=== PATIENT | male | born 1950 | race Caucasian/White ===

== ENCOUNTER 2017-05-17 09:57 | Inpatient (IN) | payer MEDICARE, MEDICAID ==
[2017-05-17] MEDS: PROPOFOL 200 MG INJ IV (10:28)
[2017-05-17] MEDS: HYDROmorphONE 1 MG/ML SYG IV (10:28)
[2017-05-17] MEDS: ONDANSETRON 4 MG INJ IV (10:28)
[2017-05-17] MEDS: HYDROCODONE/APAP (10/325) TAB PO (10:33)
[2017-05-17] MEDS: ONDANSETRON (ODT) 4 MG TAB ODT (10:34)
[2017-05-17] MEDS ORDERED: ONDANSETRON 4 MG INJ IV (11:30)
[2017-05-17] MEDS: LIDOCAINE 1% (MPF) 5 ML VIAL SC (14:00)
[2017-05-17] MEDS ORDERED: MINERAL OIL 133 ML ENEMA PR (15:00)
[2017-05-17] MEDS ORDERED: SENNA TAB PO (15:00)
[2017-05-17] MEDS ORDERED: MAGNESIUM HYDROXIDE 30ML CUP PO (15:00)
[2017-05-17] MEDS ORDERED: POLYETHYLENE GLYCOL 17 GM PACKET PO (15:00)
[2017-05-17 17:01] LABS: ADD MAN DIFF? NO
[2017-05-17 17:05] LABS: BASOPHILS % 0.3 % (0.0-2.0); EOSINOPHILS # 0.2 10^3/ul (0.0-0.5); EOSINOPHILS % 1.6 % (0.0-7.0); HEMATOCRIT 33.8 % (42.0-52.0); HEMOGLOBIN 10.6 g/dl (14.0-18.0); LYMPHOCYTES # 1.2 10^3/ul (0.8-2.9); LYMPHOCYTES % 10.2 % (15.0-51.0); MEAN CORPUSCULAR HEMOGLOBIN 29.1 pg (29.0-33.0); MEAN CORPUSCULAR HGB CONC 31.4 g/dl (32.0-37.0); MEAN CORPUSCULAR VOLUME 92.9 fl (82.0-101.0); MEAN PLATELET VOLUME 9.5 fl (7.4-10.4); MONOCYTE # 0.6 10^3/ul (0.3-0.9); MONOCYTES % 5.3 % (0.0-11.0); NEUTROPHIL # 9.4 10^3/ul (1.6-7.5); NEUTROPHILS % 81.4 % (39.0-77.0); PLATELET COUNT 250 10^3/UL (140-415); RED BLOOD COUNT 3.64 10^6/ul (4.70-6.10)
[2017-05-17 17:05] LABS: WHITE BLOOD COUNT 11.6 10^3/ul (4.8-10.8)
[2017-05-17 17:24] LABS: INR 1.04; PARTIAL THROMBOPLASTIN TIME 34.1 Sec (25.0-35.0); PROTIME 13.7 Sec (11.9-14.9); PT RATIO 1.1
[2017-05-17 17:43] LABS: ANION GAP 9 (8-16); BLOOD UREA NITROGEN 34 mg/dl (7-20); CALCIUM 9.3 mg/dl (8.4-10.2); CARBON DIOXIDE 32 mmol/L (21-31); CHLORIDE 103 mmol/L (97-110); CREATININE 0.53 mg/dl (0.61-1.24); GLUCOSE 90 mg/dl (70-220); POTASSIUM 4.1 mmol/L (3.5-5.1); SODIUM 140 mmol/L (135-144)
[2017-05-17] MEDS: BISACODYL 10 MG SUPP PR (18:15)
[2017-05-17] MEDS: PROPRANOLOL 20 MG TAB GTB ×2 (18:16→23:46)
[2017-05-17] MEDS: LEVETIRACETAM (100 MG/ML) 5ML CUP GTB (18:17)
[2017-05-17 18:26] LABS: TROPONIN-I < 0.012 ng/ml (0.00-0.12)
[2017-05-17] MEDS: ACETAMINOPHEN 325 MG TAB PO (19:05)
[2017-05-17] MEDS ORDERED: AMIODARONE 200 MG TAB GTB (22:00)
[2017-05-17] MEDS ORDERED: PENDING SANTYL ORDER FOR WOUND CARE XX (22:30)
[2017-05-17] MEDS: AMIODARONE 200 MG TAB GTB (23:00)
[2017-05-18] MEDS ORDERED: SOD CHLORIDE 0.9% 500 ML IV (00:30)
[2017-05-18] MEDS: LEVETIRACETAM (100 MG/ML) 5ML CUP GTB ×3 (01:23→20:43)
[2017-05-18] MEDS: AMIODARONE 200 MG TAB GTB ×3 (05:21→22:07)
[2017-05-18 05:42] LABS: ADD MAN DIFF? NO
[2017-05-18 06:00] LABS: WHITE BLOOD COUNT 10.5 10^3/ul (4.8-10.8)
[2017-05-18 06:00] LABS: BASOPHILS % 0.3 % (0.0-2.0); EOSINOPHILS # 0.2 10^3/ul (0.0-0.5); EOSINOPHILS % 1.5 % (0.0-7.0); HEMATOCRIT 33.4 % (42.0-52.0); HEMOGLOBIN 10.3 g/dl (14.0-18.0); LYMPHOCYTES # 0.7 10^3/ul (0.8-2.9); LYMPHOCYTES % 6.6 % (15.0-51.0); MEAN CORPUSCULAR HEMOGLOBIN 28.6 pg (29.0-33.0); MEAN CORPUSCULAR HGB CONC 30.8 g/dl (32.0-37.0); MEAN CORPUSCULAR VOLUME 92.8 fl (82.0-101.0); MEAN PLATELET VOLUME 10.2 fl (7.4-10.4); MONOCYTE # 0.7 10^3/ul (0.3-0.9); NEUTROPHIL # 8.7 10^3/ul (1.6-7.5); PLATELET COUNT 277 10^3/UL (140-415)
[2017-05-18] MEDS: PROPRANOLOL 20 MG TAB GTB ×3 (06:19→22:07)
[2017-05-18] MEDS: traMADol 50 MG TAB GTB ×2 (06:26→13:12)
[2017-05-18 06:31] LABS: ANION GAP 10 (8-16); BLOOD UREA NITROGEN 30 mg/dl (7-20); CALCIUM 9.1 mg/dl (8.4-10.2); CARBON DIOXIDE 31 mmol/L (21-31); CHLORIDE 105 mmol/L (97-110); CREATININE 0.54 mg/dl (0.61-1.24); GLUCOSE 85 mg/dl (70-220); PHOSPHORUS 3.6 mg/dl (2.5-4.9); POTASSIUM 4.2 mmol/L (3.5-5.1); SODIUM 142 mmol/L (135-144)
[2017-05-18] MEDS: ASCORBIC ACID 500 MG TAB PO (09:48)
[2017-05-18] MEDS: LANSOPRAZOLE 30 MG CAP GTB (09:48)
[2017-05-18] MEDS: LORATADINE 10 MG TAB GTB (09:49)
[2017-05-18] MEDS: ACETAZOLAMIDE 250 MG TAB GTB (09:49)
[2017-05-18] MEDS: ZINC SULFATE 220 MG CAP GTB (09:49)
[2017-05-18] MEDS: FINASTERIDE 5 MG TAB GTB (09:50)
[2017-05-18] MEDS: LACTOBACILLUS RHAMNOSUS CAP PO (09:50)
[2017-05-18] MEDS: MULTIVITAMINS THERAPEUTIC TAB PO (09:51)
[2017-05-18] MEDS: ENOXAPARIN 40 MG/0.4 ML SYG SC (10:07)
[2017-05-18] MEDS ORDERED: VANCOMYCIN IV PER PHARMACY XX (13:00)
[2017-05-18] MEDS: DIGOXIN 0.25 MG TAB GTB (13:13)
[2017-05-18] MEDS: BISACODYL 10 MG SUPP PR (14:56)
[2017-05-18] MEDS: VANCOMYCIN 1.25 GM in SOD CHLORIDE 0.45% 250 ML IVPB (14:57)
[2017-05-19] MEDS ORDERED: VANCOMYCIN 1 GM in SOD CHLORIDE 0.45% 250 ML IVPB (03:00)
[2017-05-19] MEDS: VANCOMYCIN 750 MG in DEXTROSE 5% 150 ML IVPB ×2 (03:23→15:58)
[2017-05-19 05:58] LABS: ADD MAN DIFF? NO
[2017-05-19 06:06] LABS: WHITE BLOOD COUNT 9.8 10^3/ul (4.8-10.8)
[2017-05-19 06:06] LABS: BASOPHILS % 0.4 % (0.0-2.0); EOSINOPHILS # 0.4 10^3/ul (0.0-0.5); EOSINOPHILS % 3.7 % (0.0-7.0); HEMATOCRIT 32.1 % (42.0-52.0); HEMOGLOBIN 10.2 g/dl (14.0-18.0); LYMPHOCYTES % 10.1 % (15.0-51.0); MEAN CORPUSCULAR HEMOGLOBIN 29.4 pg (29.0-33.0); MEAN CORPUSCULAR HGB CONC 31.8 g/dl (32.0-37.0); MEAN CORPUSCULAR VOLUME 92.5 fl (82.0-101.0); MEAN PLATELET VOLUME 10.1 fl (7.4-10.4); MONOCYTE # 0.9 10^3/ul (0.3-0.9); MONOCYTES % 9.6 % (0.0-11.0); NEUTROPHIL # 7.3 10^3/ul (1.6-7.5); NEUTROPHILS % 73.7 % (39.0-77.0); PLATELET COUNT 290 10^3/UL (140-415); RED BLOOD COUNT 3.47 10^6/ul (4.70-6.10); RED CELL DISTRIBUTION WIDTH 15.2 % (11.5-14.5)
[2017-05-19] MEDS: AMIODARONE 200 MG TAB GTB ×3 (06:22→22:00)
[2017-05-19] MEDS: PROPRANOLOL 20 MG TAB GTB ×3 (06:22→22:33)
[2017-05-19 06:27] LABS: ANION GAP 11 (8-16); BLOOD UREA NITROGEN 28 mg/dl (7-20); CARBON DIOXIDE 29 mmol/L (21-31); CHLORIDE 105 mmol/L (97-110); CREATININE 0.53 mg/dl (0.61-1.24); GLUCOSE 100 mg/dl (70-220); PHOSPHORUS 3.2 mg/dl (2.5-4.9); POTASSIUM 4.4 mmol/L (3.5-5.1); SODIUM 141 mmol/L (135-144)
[2017-05-19] MEDS: LEVETIRACETAM (100 MG/ML) 5ML CUP GTB ×2 (08:51→20:40)
[2017-05-19] MEDS: MULTIVITAMINS THERAPEUTIC TAB PO (08:53)
[2017-05-19] MEDS: LANSOPRAZOLE 30 MG CAP GTB (08:54)
[2017-05-19] MEDS: LORATADINE 10 MG TAB GTB (08:54)
[2017-05-19] MEDS: ASCORBIC ACID 500 MG TAB PO (08:54)
[2017-05-19] MEDS: ZINC SULFATE 220 MG CAP GTB (08:55)
[2017-05-19] MEDS: LACTOBACILLUS RHAMNOSUS CAP PO (08:55)
[2017-05-19] MEDS: FINASTERIDE 5 MG TAB GTB (08:57)
[2017-05-19] MEDS: ACETAZOLAMIDE 250 MG TAB GTB (09:06)
[2017-05-19] MEDS: traMADol 50 MG TAB GTB (09:10)
[2017-05-19] MEDS: ENOXAPARIN 40 MG/0.4 ML SYG SC (11:55)
[2017-05-19] MEDS: ACETAMINOPHEN 325 MG TAB PO (11:55)
[2017-05-19] MEDS: DIGOXIN 0.25 MG TAB GTB (14:51)
[2017-05-19] MEDS: BISACODYL 10 MG SUPP PR (14:51)
[2017-05-20 02:27] LABS: VANCOMYCIN,TROUGH 15.2 ug/ml (10.0-20.0)
[2017-05-20] MEDS: VANCOMYCIN 750 MG in DEXTROSE 5% 150 ML IVPB ×2 (03:00→17:03)
[2017-05-20] MEDS: ACETAMINOPHEN 325 MG TAB PO (03:06)
[2017-05-20] MEDS: AMIODARONE 200 MG TAB GTB ×3 (05:17→22:09)
[2017-05-20] MEDS: PROPRANOLOL 20 MG TAB GTB ×3 (05:18→23:02)
[2017-05-20] MEDS ORDERED: EPHEDrine SULFATE 50 MG/5 ML SYG (07:00)
[2017-05-20] MEDS: LEVETIRACETAM (100 MG/ML) 5ML CUP GTB ×2 (08:55→20:35)
[2017-05-20] MEDS: morphine 2 MG INJ IV ×3 (08:56→16:44)
[2017-05-20] MEDS: LACTOBACILLUS RHAMNOSUS CAP PO (09:00)
[2017-05-20 09:48] LABS: ABNORMAL IP MESSAGE 1; MEAN CORPUSCULAR HEMOGLOBIN 28.7 pg (29.0-33.0); MEAN CORPUSCULAR HGB CONC 31.3 g/dl (32.0-37.0); MEAN CORPUSCULAR VOLUME 91.7 fl (82.0-101.0); MEAN PLATELET VOLUME 9.6 fl (7.4-10.4); PLATELET COUNT 241 10^3/UL (140-415); POSITIVE DIFF @See below; RED BLOOD COUNT 3.49 10^6/ul (4.70-6.10); RED CELL DISTRIBUTION WIDTH 14.6 % (11.5-14.5)
[2017-05-20 10:04] LABS: ADD MAN DIFF? YES
[2017-05-20 10:07] LABS: INR 1.04; PROTIME 13.7 Sec (11.9-14.9); PT RATIO 1.1
[2017-05-20 10:08] LABS: ANION GAP 6 (8-16); BLOOD UREA NITROGEN 18 mg/dl (7-20); CALCIUM 8.7 mg/dl (8.4-10.2); CARBON DIOXIDE 28 mmol/L (21-31); CHLORIDE 106 mmol/L (97-110); CREATININE 0.52 mg/dl (0.61-1.24); GLUCOSE 83 mg/dl (70-220); PARTIAL THROMBOPLASTIN TIME 33.1 Sec (25.0-35.0); POTASSIUM 3.9 mmol/L (3.5-5.1); SODIUM 136 mmol/L (135-144)
[2017-05-20] MEDS: COLISTIMETHATE (25 MG/ML INHAL SYG) NEB ×2 (11:00→20:00)
[2017-05-20] MEDS ORDERED: FENTAnyl 50 MCG/ML VIAL (11:24)
[2017-05-20] MEDS ORDERED: ROCURONIUM 50 MG INJ (11:26)
[2017-05-20] MEDS ORDERED: HYDROmorphONE (0.2 MG/ML) 10ML SYG IV ×2 (11:30)
[2017-05-20] MEDS ORDERED: DIPHENHYDRAMINE 50 MG INJ IV (11:30)
[2017-05-20] MEDS ORDERED: FENTAnyl 50 MCG/ML VIAL IV ×2 (11:30)
[2017-05-20] MEDS ORDERED: ONDANSETRON 4 MG INJ IV (11:30)
[2017-05-20 11:35] LABS: ANISOCYTOSIS 1+ (0-0); BAND NEUTROPHILS #M 0.5 10^3/ul (0.0-0.6); BAND NEUTROPHILS % (M) 8 % (0-4); EOSINOPHILS % (M) 2 % (0-7); GIANT THROMBO% (M) 1 % (0-0); LYMPHOCYTES #M 0.9 10^3/ul (0.8-2.9); LYMPHOCYTES % (M) 14 % (15-51); MONOCYTE #M 0.9 10^3/ul (0.3-0.9); MONOCYTES % (M) 13 % (0-11); PLATELET ESTIMATE NORMAL; REACTIVE LYMPHOCYTES #M 0.1 10^3/ul (0.0-0.0); REACTIVE LYMPHOCYTES% (M) 2 % (0-0); SEG NEUT #M 4.3 10^3/ul (1.7-7.5); SEGMENTED NEUTROPHILS (M) % 61 % (39-77); SMUDGE%M 11 % (0-0)
[2017-05-20] MEDS: DIGOXIN 0.25 MG TAB GTB (13:08)
[2017-05-20] MEDS: FINASTERIDE 5 MG TAB GTB (13:08)
[2017-05-20] MEDS: ACETAZOLAMIDE 250 MG TAB GTB (13:08)
[2017-05-20] MEDS: LANSOPRAZOLE 30 MG CAP GTB (13:08)
[2017-05-20] MEDS: MULTIVITAMINS THERAPEUTIC TAB PO (13:08)
[2017-05-20] MEDS: ZINC SULFATE 220 MG CAP GTB (13:09)
[2017-05-20] MEDS: LORATADINE 10 MG TAB GTB (13:09)
[2017-05-20] MEDS: ASCORBIC ACID 500 MG TAB PO (13:14)
[2017-05-20] MEDS: BISACODYL 10 MG SUPP PR (15:00)
[2017-05-20] MEDS: LORAZEPAM 2 MG INJ IV ×2 (17:02→17:30)
[2017-05-21] MEDS: VANCOMYCIN 750 MG in DEXTROSE 5% 150 ML IVPB ×2 (03:05→14:42)
[2017-05-21 05:43] LABS: HEMATOCRIT 29.6 % (42.0-52.0); HEMOGLOBIN 9.3 g/dl (14.0-18.0); MEAN CORPUSCULAR HGB CONC 31.4 g/dl (32.0-37.0); MEAN CORPUSCULAR VOLUME 92.2 fl (82.0-101.0); PLATELET COUNT 265 10^3/UL (140-415); POSITIVE DIFF @See below; RED BLOOD COUNT 3.21 10^6/ul (4.70-6.10)
[2017-05-21 05:43] LABS: WHITE BLOOD COUNT 8.6 10^3/ul (4.8-10.8)
[2017-05-21 05:47] LABS: ADD MAN DIFF? YES
[2017-05-21] MEDS: AMIODARONE 200 MG TAB GTB ×3 (06:06→22:29)
[2017-05-21 06:31] LABS: ANION GAP 7 (8-16); BLOOD UREA NITROGEN 18 mg/dl (7-20); CALCIUM 8.7 mg/dl (8.4-10.2); CARBON DIOXIDE 29 mmol/L (21-31); CHLORIDE 105 mmol/L (97-110); CREATININE 0.53 mg/dl (0.61-1.24); GLUCOSE 117 mg/dl (70-220); MAGNESIUM 1.8 mg/dl (1.7-2.5); PHOSPHORUS 3.2 mg/dl (2.5-4.9); POTASSIUM 3.9 mmol/L (3.5-5.1); SODIUM 137 mmol/L (135-144)
[2017-05-21 08:02] LABS: ANISOCYTOSIS 1+ (0-0); BAND NEUTROPHILS % (M) 1 % (0-4); EOSINOPHILS % (M) 7 % (0-7); GIANT THROMBO% (M) 1 % (0-0); LYMPHOCYTES #M 0.7 10^3/ul (0.8-2.9); LYMPHOCYTES % (M) 9 % (15-51); MONOCYTE #M 0.7 10^3/ul (0.3-0.9); MONOCYTES % (M) 9 % (0-11); MYELOCYTES % (M) 1 % (0-0); PLATELET ESTIMATE NORMAL; POLYCHROMASIA 1+ (0-0); REACTIVE LYMPHOCYTES% (M) 1 % (0-0); SEG NEUT #M 6.2 10^3/ul (1.7-7.5); SEGMENTED NEUTROPHILS (M) % 72 % (39-77); SMUDGE%M 5 % (0-0)
[2017-05-21] MEDS: MULTIVITAMINS THERAPEUTIC TAB PO (08:32)
[2017-05-21] MEDS: LACTOBACILLUS RHAMNOSUS CAP PO (08:32)
[2017-05-21] MEDS: LANSOPRAZOLE 30 MG CAP GTB (08:32)
[2017-05-21] MEDS: LORATADINE 10 MG TAB GTB (08:33)
[2017-05-21] MEDS: ACETAZOLAMIDE 250 MG TAB GTB (08:33)
[2017-05-21] MEDS: PROPRANOLOL 20 MG TAB GTB ×3 (08:33→23:41)
[2017-05-21] MEDS: FINASTERIDE 5 MG TAB GTB (08:33)
[2017-05-21] MEDS: ZINC SULFATE 220 MG CAP GTB (08:33)
[2017-05-21] MEDS: LEVETIRACETAM (100 MG/ML) 5ML CUP GTB ×2 (08:37→20:37)
[2017-05-21] MEDS: morphine 2 MG INJ IV ×2 (08:40→18:06)
[2017-05-21] MEDS: ENOXAPARIN 40 MG/0.4 ML SYG SC (08:47)
[2017-05-21] MEDS: ASCORBIC ACID 500 MG TAB PO (09:26)
[2017-05-21] MEDS: COLISTIMETHATE (25 MG/ML INHAL SYG) NEB ×2 (09:58→20:41)
[2017-05-21] MEDS: DIGOXIN 0.25 MG TAB GTB (14:18)
[2017-05-21] MEDS: BISACODYL 10 MG SUPP PR (15:00)
[2017-05-21] MEDS: CEFEPIME 2GM/50 ML (PMX) 50 ML IVPB (17:48)
[2017-05-21] MEDS: ACETAMINOPHEN 325 MG TAB PO (20:43)
[2017-05-22] MEDS: VANCOMYCIN 750 MG in DEXTROSE 5% 150 ML IVPB (03:00)
[2017-05-22 03:24] LABS: VANCOMYCIN,TROUGH 17.6 ug/ml (10.0-20.0)
[2017-05-22 05:06] LABS: ADD MAN DIFF? NO
[2017-05-22 05:20] LABS: BASOPHILS % 0.5 % (0.0-2.0); EOSINOPHILS # 0.4 10^3/ul (0.0-0.5); HEMATOCRIT 30.4 % (42.0-52.0); HEMOGLOBIN 9.4 g/dl (14.0-18.0); LYMPHOCYTES # 1.1 10^3/ul (0.8-2.9); MEAN CORPUSCULAR HEMOGLOBIN 28.6 pg (29.0-33.0); MEAN CORPUSCULAR HGB CONC 30.9 g/dl (32.0-37.0); MEAN CORPUSCULAR VOLUME 92.4 fl (82.0-101.0); MEAN PLATELET VOLUME 10.1 fl (7.4-10.4); MONOCYTE # 0.8 10^3/ul (0.3-0.9); MONOCYTES % 10.3 % (0.0-11.0); NEUTROPHIL # 5.4 10^3/ul (1.6-7.5); NEUTROPHILS % 66.2 % (39.0-77.0); PLATELET COUNT 270 10^3/UL (140-415); RED BLOOD COUNT 3.29 10^6/ul (4.70-6.10); RED CELL DISTRIBUTION WIDTH 15.1 % (11.5-14.5)
[2017-05-22 05:20] LABS: WHITE BLOOD COUNT 8.1 10^3/ul (4.8-10.8)
[2017-05-22 05:48] LABS: ANION GAP 8 (8-16); BLOOD UREA NITROGEN 15 mg/dl (7-20); CALCIUM 8.8 mg/dl (8.4-10.2); CARBON DIOXIDE 30 mmol/L (21-31); CHLORIDE 106 mmol/L (97-110); CREATININE 0.62 mg/dl (0.61-1.24); GLUCOSE 101 mg/dl (70-220); PHOSPHORUS 3.2 mg/dl (2.5-4.9); POTASSIUM 3.9 mmol/L (3.5-5.1); SODIUM 140 mmol/L (135-144)
[2017-05-22] MEDS: AMIODARONE 200 MG TAB GTB ×2 (05:54→13:20)
[2017-05-22] MEDS: LEVETIRACETAM (100 MG/ML) 5ML CUP GTB (09:01)
[2017-05-22] MEDS: LANSOPRAZOLE 30 MG CAP GTB (09:01)
[2017-05-22] MEDS: LORATADINE 10 MG TAB GTB (09:01)
[2017-05-22] MEDS: PROPRANOLOL 20 MG TAB GTB ×2 (09:01→15:00)
[2017-05-22] MEDS: MULTIVITAMINS THERAPEUTIC TAB PO (09:02)
[2017-05-22] MEDS: FINASTERIDE 5 MG TAB GTB (09:02)
[2017-05-22] MEDS: LACTOBACILLUS RHAMNOSUS CAP PO (09:02)
[2017-05-22] MEDS: ASCORBIC ACID 500 MG TAB PO (09:02)
[2017-05-22] MEDS: ACETAZOLAMIDE 250 MG TAB GTB (09:07)
[2017-05-22] MEDS: ZINC SULFATE 220 MG CAP GTB (09:07)
[2017-05-22] MEDS: CEFEPIME 2GM/50 ML (PMX) 50 ML IVPB (09:08)
[2017-05-22] MEDS: ENOXAPARIN 40 MG/0.4 ML SYG SC (09:11)
[2017-05-22] MEDS: COLISTIMETHATE (25 MG/ML INHAL SYG) NEB (09:42)
[2017-05-22] MEDS ORDERED: GENTAMICIN IV PER PHARMACY XX (11:30)
[2017-05-22] MEDS: DIGOXIN 0.25 MG TAB GTB (13:00)
[2017-05-22] MEDS ORDERED: GENTAMICIN 400 MG in DEXTROSE 5% 100 ML IVPB (13:00)
[2017-05-22] MEDS: GENTAMICIN 350 MG in DEXTROSE 5% 100 ML IVPB (13:19)
[2017-05-22] MEDS: morphine 2 MG INJ IV (13:20)
[2017-05-22] MEDS: BISACODYL 10 MG SUPP PR (15:00)
[2017-05-22] MEDS: ACETAMINOPHEN 325 MG TAB PO (16:07)
== END 2017-05-22 18:50 | DRG 562 ==
LOC: E/R 09:57 → ICU 11:10
PROC: 02HV33Z Insertion of Infusion Device into Superior Vena Cava, Percutaneous Approach (ICD-10-PCS; principal; 2017-05-20 11:22)
PROC: B548ZZA Ultrasonography of Superior Vena Cava, Guidance (ICD-10-PCS; 2017-05-20 11:22)
PROC: 5A1955Z Respiratory Ventilation, Greater than 96 Consecutive Hours (ICD-10-PCS; 2017-05-20 11:22)
PROC: 0RSJXZZ Reposition Right Shoulder Joint, External Approach (ICD-10-PCS; 2017-05-20 11:22)
DX: S43.004A Unspecified dislocation of right shoulder joint, initial encounter (principal); R53.2 Functional quadriplegia; G93.40 Encephalopathy, unspecified; Z99.11 Dependence on respirator [ventilator] status; G91.1 Obstructive hydrocephalus; J96.11 Chronic respiratory failure with hypoxia; K94.22 Gastrostomy infection; L03.311 Cellulitis of abdominal wall; I50.30 Unspecified diastolic (congestive) heart failure; E87.1 Hypo-osmolality and hyponatremia; I25.10 Atherosclerotic heart disease of native coronary artery without angina pectoris; I49.9 Cardiac arrhythmia, unspecified; R13.10 Dysphagia, unspecified; Z93.1 Gastrostomy status; G40.909 Epilepsy, unspecified, not intractable, without status epilepticus; D63.8 Anemia in other chronic diseases classified elsewhere; I11.0 Hypertensive heart disease with heart failure; Z86.74 Personal history of sudden cardiac arrest; Z74.01 Bed confinement status; Z86.718 Personal history of other venous thrombosis and embolism; Z95.828 Presence of other vascular implants and grafts; N40.1 Benign prostatic hyperplasia with lower urinary tract symptoms; R33.8 Other retention of urine; I69.198 Other sequelae of nontraumatic intracerebral hemorrhage; L21.9 Seborrheic dermatitis, unspecified; Z86.79 Personal history of other diseases of the circulatory system; Z93.0 Tracheostomy status; X58.XXXA Exposure to other specified factors, initial encounter; Y92.129 Unspecified place in nursing home as the place of occurrence of the external cause
CPT/HCPCS: 36569; 71045; 73030-RT; 76937; 80048; 80202; 82962; 83735; 84100; 84484; 85025; 85610; 85730; 87070; 87081; 93005; 94002; 94003; 94640; 94770; 99217; 99285-25

== ENCOUNTER 2017-07-13 03:40 | Inpatient (IN) | payer MEDICARE, MEDICAID ==
[2017-07-13] MEDS: SODIUM CHLORIDE 0.9% 1L BAG IV* (04:16)
[2017-07-13] MEDS: CEFEPIME 2GM/50 ML (PMX) 50 ML IVPB (04:16)
[2017-07-13 04:41] LABS: ABNORMAL IP MESSAGE 1; HEMATOCRIT 49.9 % (42.0-52.0); HEMOGLOBIN 15.4 g/dl (14.0-18.0); MEAN CORPUSCULAR HEMOGLOBIN 28.5 pg (29.0-33.0); MEAN CORPUSCULAR HGB CONC 30.9 g/dl (32.0-37.0); MEAN CORPUSCULAR VOLUME 92.4 fl (82.0-101.0); MEAN PLATELET VOLUME 10.5 fl (7.4-10.4); NUCLEATED RED BLOOD CELLS% 0.1 /100WBC (0.0-0.0); PLATELET COUNT 289 10^3/UL (140-415); POSITIVE DIFF @See below; RED CELL DISTRIBUTION WIDTH 16.9 % (11.5-14.5)
[2017-07-13 04:41] LABS: WHITE BLOOD COUNT 21.3 10^3/ul (4.8-10.8)
[2017-07-13 04:48] LABS: ADD MAN DIFF? YES
[2017-07-13 04:59] LABS: ALANINE AMINOTRANSFERASE 392 IU/L (13-69); ALBUMIN 3.4 g/dl (3.3-4.9); ALBUMIN/GLOBULIN RATIO 0.61; ALKALINE PHOSPHATASE 150 IU/L (42-121); ANION GAP 27 (8-16); ASPARTATE AMINO TRANSFERASE 561 IU/L (15-46); BLOOD UREA NITROGEN 110 mg/dl (7-20); CARBON DIOXIDE 15 mmol/L (21-31); CHLORIDE 108 mmol/L (97-110); GLUCOSE 106 mg/dl (70-220); POTASSIUM 4.9 mmol/L (3.5-5.1); SODIUM 145 mmol/L (135-144); TOTAL PROTEIN 8.9 g/dl (6.1-8.1)
[2017-07-13 05:01] LABS: INR 1.48; PROTIME 18.2 Sec (11.9-14.9); PT RATIO 1.4
[2017-07-13 05:01] LABS: LACTIC ACID 4.3 mmol/L (0.5-2.0)
[2017-07-13 05:02] LABS: PARTIAL THROMBOPLASTIN TIME 33.8 Sec (25.0-35.0)
[2017-07-13 05:05] LABS: CREATININE 3.58 mg/dl (0.61-1.24)
[2017-07-13 05:14] LABS: TROPONIN-I < 0.012 ng/ml (0.00-0.12)
[2017-07-13] MEDS: NORepinephrine 8MG/250 ML (PMX 250 ML IV ×5 (06:03→19:59)
[2017-07-13] MEDS: VANCOMYCIN 1 GM (PMX) 250 ML IVPB (06:05)
[2017-07-13 06:15] LABS: ANISOCYTOSIS 1+ (0-0); BAND NEUTROPHILS #M 3.8 10^3/ul (0.0-0.6); BAND NEUTROPHILS % (M) 18 % (0-4); BASOPHIL #M 0.2 10^3/ul (0.0-0.0); BASOPHILS % (M) 1 % (0-2); BURR CELLS 2+ (0-0); ERYTHROBLAST% (NRBC) (M) 1 % (0-0); GIANT THROMBO% (M) 3 % (0-0); LYMPHOCYTES #M 0.8 10^3/ul (0.8-2.9); LYMPHOCYTES % (M) 4 % (15-51); MONOCYTE #M 1.7 10^3/ul (0.3-0.9); MONOCYTES % (M) 8 % (0-11); PLATELET ESTIMATE NORMAL; POIKILOCYTOSIS 3+ (0-0); PROMYELOCYTES #M 0.2 10^3/ul (0-0); PROMYELOCYTES % (M) 1 % (0-0); SEG NEUT #M 15.3 10^3/ul (1.6-7.5); SEGMENTED NEUTROPHILS (M) % 68 % (39-77); SMUDGE%M 10 % (0-0)
[2017-07-13 06:16] LABS: AADO2 Arterial 150.8 mmHg (7.0-24.0); Allen Test ACCEPTAB; Arterial Base Excess -15.7 mmol/L (-3.0-3); Arterial Blood Gas Oxygen Sat 94.5 mmHG (95.0-98.0); Arterial COHb 0.5 % (0.0-3.0); Arterial Fraction of Oxyhgb 93.8 % (93.0-99.0); Arterial HCO3 13.2 mmol/L (22.0-26.0); Arterial MetHb 0.2 % (0.0-1.5); Arterial Total Hemglobin 13.5 g/dl (12.0-18.0); Arterial pCO2 42.4 mmhg (35-45); MODE VENT - AC; Site Right Radial
[2017-07-13 06:25] LABS: LACTIC ACID 3.1 mmol/L (0.5-2.0)
[2017-07-13 06:37] LABS: ADD UMIC NO; UR ASCORBIC ACID NEGATIVE (NEGATIVE); UR BILIRUBIN (Dip) NEGATIVE (NEGATIVE); UR BLOOD (Dip) NEGATIVE (NEGATIVE); UR CLARITY CLEAR (CLEAR); UR COLOR YELLOW (YELLOW); UR GLUCOSE (Dip) NEGATIVE (NEGATIVE); UR KETONES (Dip) NEGATIVE (NEGATIVE); UR LEUKOCYTE ESTERASE (Dip) NEGATIVE Leu/ul (NEGATIVE); UR NITRITE (Dip) NEGATIVE (NEGATIVE); UR TOTAL PROTEIN (Dip) NEGATIVE (NEGATIVE); UR UROBILINOGEN (Dip) NEGATIVE (NEGATIVE)
[2017-07-13 08:45] LABS: LACTIC ACID 2.8 mmol/L (0.5-2.0)
[2017-07-13] MEDS ORDERED: SOD CHLORIDE 0.9% 1,000 ML IV (09:00)
[2017-07-13] MEDS ORDERED: VANCOMYCIN IV PER PHARMACY XX (09:00)
[2017-07-13] MEDS: SOD CHLORIDE 0.9% 1,000 ML IV (10:27)
[2017-07-13] MEDS: LEVETIRACETAM 500 MG (PMX) 100 ML IVPB ×3 (10:47→21:46)
[2017-07-13] MEDS ORDERED: ATROPINE 1 MG/10 ML SYRINGE (11:08)
[2017-07-13] MEDS ORDERED: DOPamine-D5W 1.6 MG/ML 250 ML (11:10)
[2017-07-13 12:03] LABS: ABNORMAL IP MESSAGE 1; HEMATOCRIT 37.6 % (42.0-52.0); HEMOGLOBIN 11.7 g/dl (14.0-18.0); MEAN CORPUSCULAR HEMOGLOBIN 29.5 pg (29.0-33.0); MEAN CORPUSCULAR HGB CONC 31.1 g/dl (32.0-37.0); MEAN CORPUSCULAR VOLUME 94.9 fl (82.0-101.0); NUCLEATED RED BLOOD CELLS% 0.2 /100WBC (0.0-0.0); PLATELET COUNT 190 10^3/UL (140-415); POSITIVE DIFF @See below; RED BLOOD COUNT 3.96 10^6/ul (4.70-6.10); RED CELL DISTRIBUTION WIDTH 16.8 % (11.5-14.5)
[2017-07-13 12:03] LABS: WHITE BLOOD COUNT 31.2 10^3/ul (4.8-10.8)
[2017-07-13 12:04] LABS: ADD MAN DIFF? YES
[2017-07-13 12:09] LABS: AADO2 Arterial 573.9 mmHg (7.0-24.0); Allen Test ACCEPTAB; Arterial Base Excess -22.9 mmol/L (-3.0-3); Arterial Blood Gas Oxygen Sat 83.6 mmHG (95.0-98.0); Arterial COHb 0.6 % (0.0-3.0); Arterial Fraction of Oxyhgb 82.9 % (93.0-99.0); Arterial HCO3 11.6 mmol/L (22.0-26.0); Arterial MetHb 0.2 % (0.0-1.5); Arterial Total Hemglobin 12.9 g/dl (12.0-18.0); Arterial pCO2 70.2 mmhg (35-45); MODE VENT - AC; Site Right Radial
[2017-07-13 12:23] LABS: ALKALINE PHOSPHATASE 147 IU/L (42-121); ANION GAP 24 (8-16); BILIRUBIN,TOTAL 0.2 mg/dl (0.2-1.3); BLOOD UREA NITROGEN 104 mg/dl (7-20); CALCIUM 6.5 mg/dl (8.4-10.2); CARBON DIOXIDE 11 mmol/L (21-31); CHLORIDE 114 mmol/L (97-110); GLUCOSE 70 mg/dl (70-220); POTASSIUM 4.8 mmol/L (3.5-5.1); SODIUM 144 mmol/L (135-144)
[2017-07-13 12:40] LABS: ALANINE AMINOTRANSFERASE 1202 IU/L (13-69)
[2017-07-13] MEDS ORDERED: NA BICARBONATE 8.4% 50 ML SYG (12:43)
[2017-07-13] MEDS ORDERED: LORAZEPAM 2 MG INJ (12:51)
[2017-07-13] MEDS: NA BICARBONATE 8.4% 50 ML SYG IV (12:59)
[2017-07-13 13:00] LABS: ASPARTATE AMINO TRANSFERASE 2280 IU/L (15-46); CREATININE 3.05 mg/dl (0.61-1.24)
[2017-07-13] MEDS: SODIUM BICARBONATE (IV ADD) 150 MEQ in DEXTROSE 5% 850 ML IV (13:00)
[2017-07-13] MEDS: SODIUM BICARBONATE (IV ADD) 100 MEQ in DEXTROSE 5%-0.45% NACL 900 ML IV ×2 (13:06→14:45)
[2017-07-13] MEDS: PANTOPRAZOLE 40 MG INJ IV (13:22)
[2017-07-13] MEDS: VANCOMYCIN 750 MG in SOD CHLORIDE 0.9% 150 ML IVPB (13:28)
[2017-07-13] MEDS ORDERED: LORAZEPAM 2 MG INJ IV ×2 (13:30)
[2017-07-13 14:05] LABS: ANISOCYTOSIS 1+ (0-0); BAND NEUTROPHILS #M 9.9 10^3/ul (0.0-0.6); BAND NEUTROPHILS % (M) 32 % (0-4); ERYTHROBLAST% (NRBC) (M) 1 % (0-0); GIANT THROMBO% (M) 3 % (0-0); LYMPHOCYTES #M 3.1 10^3/ul (0.8-2.9); LYMPHOCYTES % (M) 10 % (15-51); METAMYELOCYTES #M 1.5 10^3/ul (0.0-0.0); METAMYELOCYTES %M 5 % (0-0); MONOCYTE #M 2.1 10^3/ul (0.3-0.9); MONOCYTES % (M) 7 % (0-11); PLATELET ESTIMATE NORMAL; POIKILOCYTOSIS 3+ (0-0); POLYCHROMASIA 1+ (0-0); REACTIVE LYMPHOCYTES #M 0.9 10^3/ul (0.0-0.0); REACTIVE LYMPHOCYTES% (M) 3 % (0-0); SEG NEUT #M 16.5 10^3/ul (1.6-7.5); SEGMENTED NEUTROPHILS (M) % 43 % (39-77); SMUDGE%M 3 % (0-0)
[2017-07-13] MEDS ORDERED: DEXTROSE 50% 50 ML SYRINGE (15:06)
[2017-07-13 15:25] LABS: PATH REVIEW CH
[2017-07-13] MEDS: DEXTROSE 50% 50 ML SYRINGE IV (15:32)
[2017-07-13] MEDS: DOPamine-D5W 1.6 MG/ML 250 ML IV ×2 (16:25→23:42)
[2017-07-13 17:48] LABS: AADO2 Arterial 521.7 mmHg (7.0-24.0); Allen Test ACCEPTAB; Arterial Base Excess -13.8 mmol/L (-3.0-3); Arterial Blood Gas Oxygen Sat 99.5 mmHG (95.0-98.0); Arterial COHb 1.5 % (0.0-3.0); Arterial Fraction of Oxyhgb 97.7 % (93.0-99.0); Arterial HCO3 13.6 mmol/L (22.0-26.0); Arterial MetHb 0.3 % (0.0-1.5); Arterial Total Hemglobin 12.8 g/dl (12.0-18.0); Arterial pCO2 36.6 mmhg (35-45); MODE VENT - AC; Site Left Radial
[2017-07-13] MEDS: PHENYLephrine 40 MG in DEXTROSE 5% 496 ML IV ×2 (18:18→21:05)
[2017-07-13] MEDS: LORAZEPAM 2 MG INJ IV ×3 (20:09→22:30)
[2017-07-13] MEDS: VASOPRESSIN 60 UNIT in DEXTROSE 5% 57 ML IV (20:49)
[2017-07-13] MEDS ORDERED: FOSPHENYTOIN 100 MG PE/2ML INJ IV (23:00)
[2017-07-13] MEDS: PHENYLephrine 80 MG in DEXTROSE 5% 492 ML IV (23:41)
[2017-07-14] MEDS: LORAZEPAM 2 MG INJ IV (00:13)
[2017-07-14] MEDS: LACOSAMIDE (100 MG/10 ML PO SYR) GTB (00:13)
[2017-07-14] MEDS: FOSPHENYTOIN IV (00:14)
[2017-07-14] MEDS: SOD CHLORIDE 0.9% IV (00:14)
[2017-07-14] MEDS ORDERED: EPINEPHrine 0.1 MG/ML SYG ×2 (00:50→00:51)
[2017-07-14] MEDS: INSULIN REGULAR, HUMAN 100 UNIT/1 ML 3ML VIAL IV (01:39)
[2017-07-14] MEDS ORDERED: PHENYTOIN 100 MG INJ IV (06:00)
[2017-07-14] MEDS ORDERED: CEFEPIME 1GM/50 ML (PMX) 50 ML IVPB (09:00)
[2017-07-14] MEDS ORDERED: INFLUENZA VIRUS VACCINE 0.5 ML (DISPENSING) IM* (09:00)
== END 2017-07-14 00:59 | disposition expired | DRG 871 ==
LOC: E/R 03:40 → ICU 07:14
PROC: 5A1935Z Respiratory Ventilation, Less than 24 Consecutive Hours (ICD-10-PCS; principal; 2017-07-13)
DX: A41.9 Sepsis, unspecified organism (principal); J18.9 Pneumonia, unspecified organism; J96.90 Respiratory failure, unspecified, unspecified whether with hypoxia or hypercapnia; N17.0 Acute kidney failure with tubular necrosis; R65.21 Severe sepsis with septic shock; G93.40 Encephalopathy, unspecified; I11.0 Hypertensive heart disease with heart failure; K56.609 Unspecified intestinal obstruction, unspecified as to partial versus complete obstruction; I50.9 Heart failure, unspecified; K92.0 Hematemesis; K56.7 Ileus, unspecified; I46.9 Cardiac arrest, cause unspecified; Z93.1 Gastrostomy status; G40.909 Epilepsy, unspecified, not intractable, without status epilepticus; N40.0 Benign prostatic hyperplasia without lower urinary tract symptoms; Z93.0 Tracheostomy status
CPT/HCPCS: 36415; 36600; 71045; 71250; 74176; 76705; 80053; 81003; 82803; 82962; 83605; 84484; 85025; 85610; 85730; 87040; 87070; 87081; 87086; 92950; 93005; 93306; 94002; 94003; 96374; 96375; 99291-25